=== PATIENT | female | born 1995 | race African-American/Black ===

== ENCOUNTER 2016-07-22 09:39 | Emergency (ER) | payer MEDICAID ==
[2016-07-22] MEDS ORDERED: ONDANSETRON 4 MG VIAL ONE (11:19)
[2016-07-22] MEDS ORDERED: SODIUM CHLORIDE 0.9% 1,000 ML ONE (11:19)
[2016-07-22] MEDS ORDERED: LIDOCAINE 2% VISC 15 ML UDC ONE (11:19)
[2016-07-22] MEDS ORDERED: ALU/MAG/SIM 30 ML UDC ONE (11:19)
== END 2016-07-22 13:48 | disposition home or self-care (01) ==
LOC: ER 09:39
DX: R10.13 Epigastric pain (principal); R11.2 Nausea with vomiting, unspecified; K21.9 Gastro-esophageal reflux disease without esophagitis
CPT/HCPCS: 36415; 74022; 76705; 80053; 81003; 83690; 84703; 85025; 96361; 96374

== ENCOUNTER 2016-07-29 20:37 | Emergency (ER) | payer MEDICAID ==
[2016-07-29] MEDS ORDERED: ONDANSETRON 4 MG VIAL ONE (22:56)
[2016-07-29] MEDS ORDERED: KETOROLAC 30 MG/ML VIAL ONE (22:56)
[2016-07-29] MEDS ORDERED: SODIUM CHLORIDE 0.9% 250 ML IV ONE (22:56)
[2016-07-29] MEDS ORDERED: FAMOTIDINE 20 MG INJ ONE (22:57)
== END 2016-07-30 00:39 | disposition home or self-care (01) ==
LOC: ER 20:37
DX: R10.11 Right upper quadrant pain (principal); R10.13 Epigastric pain; K21.9 Gastro-esophageal reflux disease without esophagitis
CPT/HCPCS: 36415; 76705; 80053; 81001; 83690; 84703; 85025; 96374; 96375

== ENCOUNTER 2016-08-06 19:18 | Emergency (ER) | payer MEDICAID | END 2016-08-06 21:59 | disposition home or self-care (01) | LOC: ER 19:18 | DX: R10.30 Lower abdominal pain, unspecified (principal); Z20.2 Contact with and (suspected) exposure to infections with a predominantly sexual mode of transmission | CPT/HCPCS: 36415; 80053; 81001; 83690; 84703; 85025; 87491; 87591; 87800 ==